=== PATIENT | female | born 1960 | race Hispanic/Latino ===

== ENCOUNTER 2016-12-12 12:54 | Emergency (ER) | payer BC, OTHER ==
[2016-12-12 13:03] VITALS: PULSE 72; RESP 16; TEMP 98.3; O2SAT 99
--- NOTE | 2016-12-12 13:30 | ED PDOC ---
HPI: CCC, URI, Sore Throat Time Seen by Provider: 12/12/16 13:01 Chief Complaint (Nursing): Lower Extremity Problem/Injury Past Medical History Vital Signs: Last Vital Signs Temp 98.3 F 12/12/16 13:01 Pulse 72 12/12/16 13:01 Resp 16 12/12/16 13:01 BP 173/106 H 12/12/16 13:01 Pulse Ox 99 12/12/16 13:01 - Allergies Allergies/Adverse Reactions: Allergies Allergy/AdvReac Type Severity Reaction Status Date / Time No Known Allergies Allergy Verified 12/12/16 13:04 - ECG O2 Sat by Pulse Oximetry: 99 Medical Decision Making Medical Decision Making: Initial Impression: Viral Illness Initial Plan: * EKG * CMP * TSH * Troponin I * CBC * PTT * Patient * Chest X-Ray Scribe Attestation: Documented by So Quintana, acting as a scribe for Rayna Peterson Provider Scribe Attestation: All medical record entries made by the Scribe were at my direction and personally dictated by me. I have reviewed the chart and agree that the record accurately reflects my personal performance of the history, physical exam, medical decision making, and the department course for this patient. I have also personally directed, reviewed, and agree with the discharge instructions and disposition. Disposition - Disposition
--- NOTE | 2016-12-12 13:35 | ED PDOC ---
Upper Extremity Pain/Injury Time Seen by Provider: 12/12/16 13:01 Chief Complaint (Nursing): Lower Extremity Problem/Injury Chief Complaint (Provider): upper extremity pain History Per: Patient History/Exam Limitations: no limitations Onset/Duration Of Symptoms: Days (x1) Current Symptoms Are (Timing): Still Present Additional Complaint(s): Luz Moreno is a 56 year old female with previous medical history of hypertension, who presents to the emergency department with a complaint of persisting left shoulder pain radiating to left arm associated with lethargy ongoing since 5am today. Denied fever, chills, chest pain and shortness of breath. Patient stated she initially went to urgent care with negative EKG done and advised to come to ED for further work-up. She also reported experiencing excessive stress in her life currently. PMD: none provided Past Medical History Reviewed: Historical Data, Nursing Documentation, Vital Signs Vital Signs: Last Vital Signs Temp 98.3 F 12/12/16 13:01 Pulse 72 12/12/16 13:01 Resp 16 12/12/16 13:01 BP 173/106 H 12/12/16 13:01 Pulse Ox 99 12/12/16 13:01 - Medical History PMH: HTN - Surgical History Surgical History: No Surg Hx - Family History Family History: States: Unknown Family Hx - Home Medications Home Medications: Ambulatory Orders Medication Instructions Recorded Cyclobenzaprine [Cyclobenzaprine 10 mg PO TID #20 tab 12/12/16 HCl] Ibuprofen [Motrin] 600 mg PO Q6 #20 tab 12/12/16 - Allergies Allergies/Adverse Reactions: Allergies Allergy/AdvReac Type Severity Reaction Status Date / Time No Known Allergies Allergy Verified 12/12/16 13:04 Review of Systems ROS Statement: Except As Marked, All Systems Reviewed And Found Negative Constitutional: Positive for: Malaise (lethargic). Negative for: Fever, Chills Cardiovascular: Negative for: Chest Pain Respiratory: Negative for: Shortness of Breath Musculoskeletal: Positive for: Shoulder Pain (left), Arm Pain (left) Physical Exam - Reviewed Nursing Documentation Reviewed: Yes Vital Signs Reviewed: Yes - Physical Exam Appears: Positive for: Well, Non-toxic, No Acute Distress Head Exam: Positive for: ATRAUMATIC, NORMAL INSPECTION, NORMOCEPHALIC Skin: Positive for: Normal Color. Negative for: Rash Cardiovascular/Chest: Positive for: Regular Rate, Rhythm. Negative for: Chest Non Tender Respiratory: Positive for: Normal Breath Sounds, Accessory Muscle Use. Negative for: Decreased Breath Sounds, Crackles, Rales, Rhonchi, Wheezing, Respiratory Distress Extremity: Positive for: Normal ROM. Negative for: Tenderness, Pedal Edema, Deformity Neurologic/Psych: Positive for: Alert, Oriented - Laboratory Results Result Diagrams: 12/12/16 13:49 12/12/16 13:49 - ECG O2 Sat by Pulse Oximetry: 99 (RA) Pulse Ox Interpretation: Normal Medical Decision Making Medical Decision Making: Initial Impression: Left shoulder pain R/O ACS Initial Plan: * EKG * CMP * TSH * Troponin I * CBC * PTT * Patient * Chest X-Ray labs resulted and reviewed with pt who demonstrated full undertaking. pt doing well on re-eval, no complaints of chest pain, SOB or shoulder pain Repeat BP remains elevated 148/107. Medications discussed with Pt who requested to continue on DASH diet as advised by her hog scalder. Pt following up with him in 3 months and if no improvement, she will begin meds at that time. XRs NAd as read by KRISTEL Scribe Attestation: Documented by So Quintana, acting as a scribe for Rayna Riggs. Provider Scribe Attestation: All medical record entries made by the Scribe were at my direction and personally dictated by me. I have reviewed the chart and agree that the record accurately reflects my personal performance of the history, physical exam, medical decision making, and the department course for this patient. I have also personally directed, reviewed, and agree with the discharge instructions and disposition. Disposition - Clinical Impression Clinical Impression: Shoulder pain - Patient ED Disposition Is Patient to be Admitted: No - Disposition Disposition: Routine/Home Disposition Time: 15:38 Condition: STABLE Prescriptions: Cyclobenzaprine [Cyclobenzaprine HCl] 10 mg PO TID #20 tab Ibuprofen [Motrin] 600 mg PO Q6 #20 tab Instructions: Shoulder Pain (ED) Forms: [employer] (Lao)
[2016-12-12 14:02] LABS: BASO % 0.6 % (0.0-2.0); EOS # 0.4 K/uL (0.0-0.7); EOS % 7.3 % (0.0-4.0); HEMATOCRIT 35.3 % (34.0-47.0); LYMPH # 1.6 K/uL (1.0-4.3); LYMPH % 30.7 % (20.0-40.0); MEAN CELL VOLUME 87.5 fl (81.0-99.0); MEAN CORPUSCULAR HEMOGLOBIN 28.4 pg (27.0-31.0); MEAN CORPUSCULAR HGB CONC 32.5 g/dL (33.0-37.0); MEAN PLATELET VOLUME 9.5 fl (7.2-11.7); MONO # 0.6 K/uL (0.0-0.8); MONO % 10.7 % (0.0-10.0); NEUT # 2.7 K/uL (1.8-7.0); NEUT % 50.7 % (50.0-75.0); NRBC % 0.1 % (0.0-0.0); WHITE BLOOD COUNT 5.2 K/uL (4.8-10.8)
[2016-12-12 14:24] LABS: ALB/GLOB RATIO 1.4 (1.0-2.1); ALKALINE PHOSPHATASE 47 U/L (38-126); ALT/SGPT 32 U/L (9-52); AST/SGOT 19 U/L (14-36); BILIRUBIN,TOTAL 0.4 mg/dl (0.2-1.3); BLOOD UREA NITROGEN 17 mg/dl (7-17); CALCIUM 9.7 mg/dL (8.4-10.2); CARBON DIOXIDE 24 mmol/L (22-30); CHLORIDE 104 mmol/L (98-107); GFR AFRICAN-AMERICAN > 60; GLUCOSE,RANDOM 85 mg/dL (65-105); POTASSIUM 4.2 MMOL/L (3.6-5.0); SODIUM 143 mmol/l (132-148); TOTAL PROTEIN 7.4 G/DL (6.3-8.2)
[2016-12-12 14:50] LABS: THYROID STIMULATING HORMONE 1.61 mIU/ML (0.46-4.68)
--- NOTE | 2016-12-12 15:32 | RAD ---
PROCEDURE: CHEST RADIOGRAPH, 1 VIEW HISTORY: left shoulder pain COMPARISON: Comparison is made to 08/17/2013 FINDINGS: LUNGS: No evidence of focal infiltrate or consolidation in the lungs. PLEURA: No pneumothorax or pleural fluid seen. CARDIOVASCULAR: Normal. OSSEOUS STRUCTURES: No significant abnormalities. VISUALIZED UPPER ABDOMEN: Normal. OTHER FINDINGS: None. IMPRESSION: No active disease.
--- NOTE | 2016-12-12 15:45 | RAD ---
PROCEDURE: Radiographs of the Left Shoulder HISTORY: pain COMPARISON: No prior. FINDINGS: BONES: Normal. No fracture. JOINTS: Normal. Glenohumeral and acromioclavicular joints preserved. No osteoarthritis. SOFT TISSUES: Punctate calcification adjacent to the humeral head likely represent calcified tendinitis OTHER FINDINGS: None. IMPRESSION: No evidence of acute fracture or dislocation. Punctate calcification at the expected location of the rotator cuff suggestive of calcified tendinitis .
[2016-12-12 15:51] VITALS: BP 148/107
--- NOTE | 2016-12-13 09:40 | CARD ---
APPROVED REPORT EKG Measurement Heart [id number] <Conclusion> Normal sinus rhythm Possible Inferior infarct, age undetermined Abnormal ECG
== END 2016-12-12 15:47 | disposition home or self-care (01) ==
LOC: H.ER 12:54
DX: M25.512 Pain in left shoulder (principal); I10 Essential (primary) hypertension

== ENCOUNTER 2017-06-11 19:19 | Emergency (ER) | payer BC ==
[2017-06-11] MEDS ORDERED: Sodium Chloride 0.9% 1,000 ML IV STA (20:01)
--- NOTE | 2017-06-11 20:20 | ED PDOC ---
HPI: Hypertension/Hypotension Time Seen by Provider: 06/11/17 19:37 Chief Complaint (Nursing): High Blood Pressure Chief Complaint (Provider): Chills History Per: Patient History/Exam Limitations: no limitations Onset/Duration Of Symptoms: Days (x 1) Current Symptoms Are (Timing): Still Present Additional Complaint(s): 57 year old female with a past medical history of arthritis and untreated HTN, presents to the ED complaining of chills beginning 1 day ago. Patient states she developed acute chills today. She reports that temperature in the room she was in was normal but she was in severe discomfort due to chills. Patient was seen at urgent care prior to arrival. She was told she had no fever and her blood pressure was 190/130. Patient was referred to ED due to high blood pressure. Patient also reports that she had urinary symptoms of frequency, urgency and discomfort for 2 weeks, but was not treated for this. She claims to have treated herself with cranberry juice. Patient has had hypertension for years but has never taken the medications she was prescribed because of associated side affects. Denies NVD, cough, congestion, any flu like symptoms, headache, chest pain and shortness of breath. PMD: Dr. Maral NUÑEZ (has not seen him in over a year) Past Medical History Reviewed: Historical Data, Nursing Documentation, Vital Signs Vital Signs: Last Vital Signs Temp 100.0 F H 06/11/17 19:28 Pulse 105 H 06/11/17 19:28 Resp 18 06/11/17 19:28 BP 177/102 H 06/11/17 19:28 Pulse Ox 97 06/11/17 19:28 - Medical History PMH: HTN - Surgical History Other surgeries: breast reduction, left knee arthroscopy and myomectomy - Family History Family History: States: Unknown Family Hx - Social History Current smoker - smoking cessation education provided: No Alcohol: None Drugs: Denies - Home Medications Home Medications: Ambulatory Orders Medication Instructions Recorded Cyclobenzaprine [Cyclobenzaprine 10 mg PO TID #20 tab 12/12/16 HCl] Ibuprofen [Motrin] 600 mg PO Q6 #20 tab 12/12/16 - Allergies Allergies/Adverse Reactions: Allergies Allergy/AdvReac Type Severity Reaction Status Date / Time No Known Allergies Allergy Verified 12/12/16 13:04 Review of Systems ROS Statement: Except As Marked, All Systems Reviewed And Found Negative Constitutional: Positive for: Fever (as of arrival to ED, 100 F), Chills ENT: Negative for: Nose Congestion Cardiovascular: Negative for: Chest Pain Gastrointestinal: Negative for: Nausea, Vomiting, Diarrhea Neurological: Negative for: Headache Physical Exam - Reviewed Nursing Documentation Reviewed: Yes Vital Signs Reviewed: Yes - Physical Exam Appears: Positive for: Non-toxic, No Acute Distress (fever of 100 F) Head Exam: Positive for: ATRAUMATIC, NORMOCEPHALIC Skin: Positive for: Normal Color, Warm, Dry Eye Exam: Positive for: EOMI, Normal appearance, PERRL Neck: Positive for: Normal, Painless ROM, Supple Cardiovascular/Chest: Positive for: Tachycardia Respiratory: Positive for: Normal Breath Sounds. Negative for: Respiratory Distress Gastrointestinal/Abdominal: Positive for: Normal Exam, Soft Back: Positive for: Normal Inspection. Negative for: L CVA Tenderness, R CVA Tenderness Extremity: Positive for: Normal ROM. Negative for: Deformity Neurologic/Psych: Positive for: Alert, Oriented. Negative for: Motor/Sensory Deficits - Laboratory Results Result Diagrams: 06/11/17 21:03 06/11/17 21:03 - ECG O2 Sat by Pulse Oximetry: 97 (RA) Pulse Ox Interpretation: Normal Medical Decision Making Medical Decision Making: Time: 19:38 Impression: 57 year old female with chills, low grade fever, and untreated hypertension --EKG --CMP --Lactic acid, plasma --Urine dip --CBC with differentials --Normal saline IV 1,000 mls/hr --Blood culture --Urine culture --Influenza AB --Urinalysis Labs were reviewed and revealed no clinically significant abnormalities. Patient reports complete resolution of symptoms. Repeat vitals indiciate HTn but she remains asymptomatic. Was advised to maintain blood pressure log for 1 week. Has blood pressure device at home. Urged to follow up with PMDDr. Alicia. Diagnosis viral syndrome and hypertension. Scribe Attestation: Documented by Marina Sheikh, acting as a scribe for Dawit Chacko MD. Provider Scribe Attestation: All medical record entries made by the Scribe were at my direction and personally dictated by me. I have reviewed the chart and agree that the record accurately reflects my personal performance of the history, physical exam, medical decision making, and the department course for this patient. I have also personally directed, reviewed, and agree with the discharge instructions and disposition. Disposition - Clinical Impression Clinical Impression: Hypertension, Viral syndrome - Patient ED Disposition Is Patient to be Admitted: No - Disposition Disposition: Routine/Home Disposition Time: 22:35 Condition: IMPROVED Instructions: High Blood Pressure in Adults, Controlling Your Blood Pressure Through Lifestyle, Medicines for High Blood Pressure, Viral Syndrome (DC) Forms: [employer] (Serbian)
[2017-06-11 20:55] LABS: SQUAMOUS EPITHIAL < 1 /hpf (0-5); URINE BILIRUBIN NEGATIVE (NEGATIVE); URINE BLOOD NEGATIVE (NEGATIVE); URINE CLARITY CLEAR (Clear); URINE COLOR YELLOW (YELLOW); URINE GLUCOSE (UA) NEG (Normal); URINE LEUKOCYTE ESTERASE NEG Leu/uL (Negative); URINE PROTEIN NEGATIVE (NEGATIVE); URINE UROBILINOGEN 0.2-1.0 mg/dL (0.2-1.0)
[2017-06-11 21:08] LABS: BASO # 0.1 K/uL (0.0-0.2); BASO % 0.7 % (0.0-2.0); EOS # 0.1 K/uL (0.0-0.7); EOS % 1.2 % (0.0-4.0); HEMOGLOBIN 12.5 g/dL (12.0-16.0); LYMPH % 10.6 % (20.0-40.0); MEAN CELL VOLUME 86.5 fl (81.0-99.0); MEAN CORPUSCULAR HEMOGLOBIN 28.4 pg (27.0-31.0); MEAN CORPUSCULAR HGB CONC 32.8 g/dL (33.0-37.0); MEAN PLATELET VOLUME 9.3 fl (7.2-11.7); MONO # 0.9 K/uL (0.0-0.8); MONO % 9.5 % (0.0-10.0); NEUT # 7.1 K/uL (1.8-7.0); NRBC % 0.1 % (0.0-0.0); RBC 4.38 Mil/uL (3.80-5.20); RED CELL DISTRIBUTION WIDTH 15.3 % (11.5-14.5); WHITE BLOOD COUNT 9.1 K/uL (4.8-10.8)
[2017-06-11 21:19] LABS: ALB/GLOB RATIO 1.2 (1.0-2.1); ALBUMIN 4.5 g/dL (3.5-5.0); ALT/SGPT 39 U/L (9-52); AST/SGOT 25 U/L (14-36); BLOOD UREA NITROGEN 17 mg/dl (7-17); CALCIUM 10.1 mg/dL (8.4-10.2); GFR AFRICAN-AMERICAN > 60; GFR NON-AFRICAN AMERICAN > 60
[2017-06-11 21:55] VITALS: BP 174/107; PULSE 90; RESP 16; TEMP 98.8
[2017-06-11 22:50] VITALS: O2SAT 97
--- NOTE | 2017-06-12 09:54 | CARD ---
APPROVED REPORT EKG Measurement Heart [id number] <Conclusion> Sinus tachycardia Possible inferior infarct, age undetermined-not diagnostic Abnormal ECG
== END 2017-06-11 22:42 | disposition home or self-care (01) ==
LOC: H.ER 19:19
DX: B34.9 Viral infection, unspecified (principal); I10 Essential (primary) hypertension
CPT/HCPCS: 80053; 81003; 83605; 85025; 87040; 87086; 87804; 93005; 96360; 99283; J7040